=== PATIENT | male | born 1955 | race Caucasian/White ===

== ENCOUNTER 2017-03-07 16:14 | Emergency (ER) | payer OTHER ==
[2017-03-07] MEDS ORDERED: methylPREDNISolone SOD SUCC 125 MG/2 ML VIAL IVP ONE (16:47)
[2017-03-07] MEDS ORDERED: RANITIDINE 50 MG/2 ML VIAL IVP ONE (16:47)
[2017-03-07 16:58] VITALS: TEMP 98.2
--- NOTE | 2017-03-07 17:09 | EDPHY ---
H & P Smoking Status: Never smoked Time Seen by Provider: 03/07/17 16:57 HPI/ROS: CHIEF COMPLAINT: Facial swelling, itchy throat HISTORY OF PRESENT ILLNESS: 61-year-old male presents to the emergency department with facial swelling and having itchy sensation in his throat and difficulty swallowing. Patient states just prior to arrival he was eating some cashews in drinking a beer and then developed initially itching in the back of his throat and then facial swelling especially around his jaw and anterior neck and was feeling numb and tingly. No chest pain or difficulty breathing. No other rash. Never had these symptoms in the past. No known allergies anything. No chest pain or difficulty breathing. No abdominal pain or vomiting. Patient also states that he was playing pickle ball 3 days ago and he stepped in felt something "snap "in his right lower leg. He has been unable to ambulate since the incident occurred. He has not followed up with his primary care provider. REVIEW OF SYSTEMS: Constitutional: No fever, no chills. Eyes: No double or blurry vision. ENT: Itching in his throat. Facial swelling. No sore throat. Respiratory: No cough, no shortness of breath. Cardiac: No chest pain. Gastrointestinal: No abdominal pain, vomiting or diarrhea. Genitourinary: No dysuria. Musculoskeletal: No neck or back pain. Skin: No rashes. Neurological: No headache. (Loretta Hairston) Past Medical/Surgical History: Negative (Loretta Hairston) Social History: (Loretta Hairston) Physical Exam: General Appearance: Alert, no distress. at bedside. The patient is mentating normally and answering questions appropriately. He has obvious swelling noted submandibular area as well as anterior chin and anterior right and left lower facial swelling. His face appears very red and flushed. Eyes: Pupils equal and round. Extraocular motions are all intact. ENT: Mouth: Mucous membranes moist. Uvular swelling noted. No muffled voice. No exudate. No vesicles. Respiratory: No wheezing, rhonchi, or rales, lungs are clear to auscultation. Cardiovascular: Regular rate and rhythm. Gastrointestinal: Abdomen is soft and nontender, no masses, no rebound or guarding, bowel sounds normal. Neurological: Alert and oriented x 3, cranial nerves II through XII grossly intact Skin: Warm and dry, no rashes. Musculoskeletal: Nontender to palpate along the cervical, thoracic or lumbar spine. Neck is supple. Extremities: Palpable deformity right posterior lower leg consistent with ruptured Achilles tendon. Weakness with plantar flexion. No other palpable bony deformity. Full range of motion of the right knee. Psychiatric: Patient is oriented X 3, there is no agitation. (Loretta Hairston) Constitutional: Initial Vital Signs Temperature (C) 37.0 C 03/07/17 16:16 Heart Rate 88 03/07/17 16:16 Respiratory Rate 16 03/07/17 16:16 Blood Pressure 173/84 H 03/07/17 16:16 O2 Sat (%) 98 03/07/17 16:16 O2 Delivery Mode Room Air Allergies/Adverse Reactions: No Known Allergies Allergy (Unverified 03/07/17 16:18) Home Medications: Medication Instructions Recorded EPINEPHRINE [EPIPEN] 0.3 mg IM ONCE #2 syr 03/07/17 predniSONE 60 mg PO DAILY 3 Days tab 03/07/17 Medical Decision Making ED Course/Re-evaluation: 61-year-old male presents to the emergency department with facial swelling and difficulty swallowing and itching. The patient had an IV established and was given 50 mg of ranitidine IV, 125 mg of Solu-Medrol IV, 50 mg of Benadryl IV, and 0.3 mg of IM epinephrine. The patient was observed. He immediately was feeling resolve of the itching feeling in his throat and his face. Clinically I think this patient also has a ruptured right Achilles tendon. He was placed in a Gonzalez boot. He has crutches at home. He was told to be nonweightbearing will follow up with orthopedic surgeon this week. Given new onset of allergic symptoms, the patient will be referred to Dr. Erin Chapa at the [facility]. Serial examinations performed. At 1745: The patient was feeling much better. Still swelling to the uvula noted. Patient was also seen examined by Dr. Mago Vallecillo. 1839: The patient is feeling much better. Uvula is less swollen. He will be discharged home with his . (Loretta Hairston) Differential Diagnosis: Including but not limited to anaphylaxis, acute allergic reaction, sialadenitis , sialolithiasis (Loretta Hairston) Other Provider: I evaluated and participated in the management of the patient. My co-signature indicates that I have reviewed this chart and I agree with thefindings and plan of care as documented. My personal H&P findings include: WD WN pleasant male reporting the development of mouth itching and swelling when eating cashews. No peripheral rash No SOB. No prior history of similar symptoms. No new meds. ON exam: No respiratory distress. No urticaria No wheezing. Oral pharynx: swelling of soft palate and post pharynx, with uvular angioedema. No drooling, no stridor. Appears in no distress. Has received epi, steroids, benadryl, h2 verenice. Will observe for progression of symptoms. If none, safe for DC with epi pen, scripts for additional prednisone, other supportive care, and must be discharged with adult. (Mago Vallecillo) - Data Points Medications Given: Discontinued Medications Diphenhydramine HCl (Benadryl Injection) 50 mg IVP EDNOW ONE Stop: 03/07/17 16:47 Last Admin: 03/07/17 16:49 Dose: 50 mg Epinephrine HCl (Epinephrine) 0.3 mg IM EDNOW ONE Stop: 03/07/17 16:47 Last Admin: 03/07/17 16:49 Dose: 0.3 mg Methylprednisolone Sodium Succinate (Solu-Medrol) 125 mg IVP EDNOW ONE Stop: 03/07/17 16:48 Last Admin: 03/07/17 16:50 Dose: 125 mg Ranitidine HCl (Zantac) 50 mg IVP EDNOW ONE Stop: 03/07/17 16:48 Last Admin: 03/07/17 16:50 Dose: 50 mg Departure - Departure Disposition: Home, Routine, Self-Care Clinical Impression: Acute anaphylaxis, Rupture Achilles tendon Condition: Good Instructions: Achilles Tendon Rupture (ED), Anaphylaxis (ED) Additional Instructions: EpiPen. Nonweightbearing. Crutches. Follow up with orthopedic surgeon this week to recheck. Referrals: Edy Vazquez MD [Primary Care Provider] - As per Instructions Zach Sierra MD [Medical Doctor] - 2-3 days without fail (Orthopedic surgeon on-call) Erin Chapa MD [[facility] [place] Primary Care Provider] - As per Instructions Prescriptions: EPINEPHRINE [EPIPEN] 0.3 mg IM ONCE #2 syr predniSONE 60 mg PO DAILY 3 Days tab
[2017-03-07 17:33] VITALS: RESP 16
[2017-03-07 18:39] VITALS: BP 162/81; PULSE 82; O2SAT 94
[2017-03-07] MEDS ORDERED: RANITIDINE 50 MG/2 ML VIAL ONE (19:40)
[2017-03-07] MEDS ORDERED: methylPREDNISolone SOD SUCC 125 MG/2 ML VIAL ONE (19:40)
== END 2017-03-07 18:51 | disposition home or self-care (01) ==
DX: S86.011A Strain of right Achilles tendon, initial encounter (principal); T78.2XXA Anaphylactic shock, unspecified, initial encounter; X58.XXXA Exposure to other specified factors, initial encounter; Y93.73 Activity, racquet and hand sports
CPT/HCPCS: 96374; J0171; J1200; J2780; J2930